=== PATIENT | female | born 1965 ===

== ENCOUNTER 2019-06-20 15:07 | Emergency (ER) | payer MEDICAID ==
--- NOTE | 2019-06-20 15:42 | EDM.PDOC ---
<Caroline aGrsia - Last Filed: 06/20/19 17:04> ED HPI GENERAL MEDICAL PROBLEM - General Chief Complaint: Lower Extremity Injury/Pain Stated Complaint: right ankle injury Time Seen by Provider: 06/20/19 15:42 Source of Information: Reports: Patient History Limitations: Reports: No Limitations - History of Present Illness INITIAL COMMENTS - FREE TEXT/NARRATIVE: HISTORY AND PHYSICAL: History of present illness: Patient is a 54-year-old female presents to the ED with complaint of right ankle injury. Patient states she tripped going down her concrete steps this afternoon. She states she felt a pop in her right ankle and has not been able to bear weight since. She denies proximal knee or hip pain or distal pain, numbness, or tingling. She denies head or other injury. Review of systems: As per history of present illness and below otherwise all systems reviewed and negative. Past medical history: As per history of present illness and as reviewed below otherwise noncontributory. Surgical history: As per history of present illness and as reviewed below otherwise noncontributory. Social history: No reported history of drug or alcohol abuse. Family history: As per history of present illness and as reviewed below otherwise noncontributory. Physical exam: General: Patient sitting comfortably in no acute distress and nontoxic appearing HEENT: Atraumatic, normocephalic, pupils reactive, negative for conjunctival pallor or scleral icterus, mucous membranes moist, throat clear, neck supple, nontender, trachea midline. No meningeal signs. Lungs: Clear to auscultation, breath sounds equal bilaterally, chest nontender. Heart: S1S2, regular, negative for clicks, rubs, or overt murmur. Abdomen: Soft, nondistended, nontender. Negative for masses or hepatosplenomegaly. Negative for costovertebral tenderness. No rigidity, rebound , guarding. Pelvis: Stable nontender. Genitourinary: Deferred. Rectal: Deferred. Extremities: Right lateral ankle is swollen with ecchymosis. Pain to palpation with tib/fib squeeze, pain to palpation of lateral malleolus and lateral foot along 5th metatarsal. negative for cords or calf pain. Neurovascular unremarkable. Neuro: Awake, alert, oriented. Cranial nerves II through XII unremarkable. Cerebellum unremarkable. Motor and sensory unremarkable throughout. Exam nonfocal. Notes: Diagnostics: x-ray right ankle and foot Therapeutics: [] Prescriptions: Impression: Right ankle injury Plan: 1. Ice, elevate, and motrin or tylenol as needed 2. Follow up with orthopedics, please call the number provided to schedule an appointment 3. Return to ED as needed as discussed Definitive disposition and diagnosis as appropriate pending reevaluation and review of above. Right Ankle Pain Score (Numeric/FACES): 4 - Related Data Allergies Allergy/AdvReac Type Severity Reaction Status Date / Time No Known Allergies Allergy Verified 06/20/19 15:36 Home Meds: Home Meds . [Unable to Verify Home Med List] 06/20/19 [History] Past Medical History - Past Health History Medical/Surgical History: Denies Medical/Surgical History - Infectious Disease History Infectious Disease History: Reports: Chicken Pox Social & Family History - Family History Family Medical History: Noncontributory - Tobacco Use Smoking Status *Q: Never Smoker Second Hand Smoke Exposure: No - Caffeine Use Caffeine Use: Reports: None - Recreational Drug Use Recreational Drug Use: No Review of Systems - Review of Systems Review Of Systems: Comprehensive ROS is negative, except as noted in HPI. ED EXAM, GENERAL - Physical Exam Exam: See Below (see dictation) Course - Vital Signs Last Recorded V/S: Last Vital Signs Temp 96.9 F 06/20/19 15:36 Pulse 76 06/20/19 15:36 Resp 16 06/20/19 15:36 BP 122/60 06/20/19 15:36 Pulse Ox 100 06/20/19 15:36 - Orders/Labs/Meds Orders: Active Orders 24 hr Category Date Time Status DME for Discharge [COMM] Stat Oth 06/20/19 17:16 Ordered Departure - Departure Disposition: Home, Self-Care 01 Condition: Good Clinical Impression: Right ankle injury Fracture of 5th metatarsal Qualifiers: Encounter type: initial encounter Fracture type: closed Fracture alignment: nondisplaced Laterality: right Qualified Code(s): S92.354A - Nondisplaced fracture of fifth metatarsal bone, right foot, initial encounter for closed fracture - Discharge Information Referrals: Heather Collisn MD [Primary Care Provider] - Forms: ED Department Discharge Additional Instructions: The following information is given to patients seen in the emergency department who are being discharged to home. This information is to outline your options for follow-up care. We provide all patients seen in our emergency department with a follow-up referral. The need for follow-up, as well as the timing and circumstances, are variable depending upon the specifics of your emergency department visit. If you don't have a primary care physician on staff, we will provide you with a referral. We always advise you to contact your personal physician following an emergency department visit to inform them of the circumstance of the visit and for follow-up with them and/or the need for any referrals to a consulting specialist. The emergency department will also refer you to a specialist when appropriate. This referral assures that you have the opportunity for follow-up care with a specialist. All of these measure are taken in an effort to provide you with optimal care, which includes your follow-up. Under all circumstances we always encourage you to contact your private physician who remains a resource for coordinating your care. When calling for follow-up care, please make the office aware that this follow-up is from your recent emergency room visit. If for any reason you are refused follow-up, please contact the [facility] Emergency Department at and asked to speak to the emergency department charge nurse. [facility] Specialty Care - Orthopedic Clinic Professional [address], [address] [place] [address] 1. Rest, ice, elevate the affected extremity. You can apply ice 15 minutes on, 15 minutes off. Keep splint on until orthopedic follow up. 2. You are to be non-weight bearing until orthopedic evaluation and follow up. 3. Tylenol and/or Ibuprofen as directed for pain management or discomfort. 4. Follow up with the Orthopedic provider as discussed. Return to the ED as needed and as discussed. Sepsis Event Note - Evaluation Sepsis Screening Result: No Definite Risk - Focused Exam Vital Signs: Vital Signs Temp Pulse Resp BP Pulse Ox 06/20/19 15:36 96.9 F 76 16 122/60 100 Date Exam was Performed: 06/20/19 Time Exam was Performed: 17:04 - My Orders Last 24 Hours: My Active Orders 06/20/19 17:16 DME for Discharge [COMM] Stat - Assessment/Plan Last 24 Hours: My Active Orders 06/20/19 17:16 DME for Discharge [COMM] Stat <Isabella Ingram - Last Filed: 06/20/19 17:20> ED HPI GENERAL MEDICAL PROBLEM - History of Present Illness INITIAL COMMENTS - FREE TEXT/NARRATIVE: Notes: I have assumed care of patient at 17:00 and agree with the above history and physical exam. I have personally seen and evaluated the patient. Discussed with patient the importance of keeping splint on until ortho follow up and evaluation. Discussed the importance of being non-weight bearing until ortho evaluation. Discussed the importance of follow up with an orthopedic provider. Expresses understanding and agrees to plan of care. Therapeutics: Posterior heel splint, Crutches Impression: Distal 5th metatarsal fracture, right Departure - Departure Time of Disposition: 17:19 Sepsis Event Note - Focused Exam Date Exam was Performed: 06/20/19 Time Exam was Performed: 17:17
--- NOTE | 2019-06-20 17:13 | CR ---
Right foot: 2 views of the right foot were obtained. Comparison: No previous foot exam. Old healed fracture deformity is noted within the shaft of the 5th metatarsal. Acute fracture is noted within the distal shaft of the 5th metatarsal. Alignment is close to anatomic. No additional fracture or other bony abnormality is appreciated. Impression: 1. Acute fracture within the distal right 5th metatarsal. Diagnostic code #3 This report was dictated in [place] Standard Time
--- NOTE | 2019-06-20 17:13 | CR ---
Right ankle: 3 views of the right ankle were obtained. Comparison: No previous right ankle study. Soft tissue swelling is identified. Ankle mortise is symmetric. Fracture is identified within the distal shaft of the 5th metatarsal. No additional fracture or other abnormality is seen. Impression: 1. Distal 5th metatarsal fracture. 2. Soft tissue swelling. 3. No additional abnormality is seen on right ankle exam. Diagnostic code #3 This report was dictated in [place] [employer] Time
== END 2019-06-20 17:55 | disposition home or self-care (01) ==
LOC: MW.ED 15:07
DX: S92.354A Nondisplaced fracture of fifth metatarsal bone, right foot, initial encounter for closed fracture (principal); W10.9XXA Fall (on) (from) unspecified stairs and steps, initial encounter
CPT/HCPCS: 29515; 73610-26-RT; 73610-RT; 73620-26-RT; 73620-RT; 99283-25